=== PATIENT | female | born 1985 | race African-American/Black ===

== ENCOUNTER 2016-09-20 03:33 | Emergency (ER) | payer OTHER ==
[2016-09-20 04:21] VITALS: BP 139/81; PULSE 66; TEMP 98.2; BMI 25.1
[2016-09-20] MEDS ORDERED: CYCLOBENZAPRINE HCL 10 MG TABLET (FP) PO ONE (04:39)
[2016-09-20] MEDS ORDERED: KETOROLAC TROMETHAMINE 30 MG/1 ML VIAL IM ONE (04:39)
--- NOTE | 2016-09-20 04:39 | PDOC ---
History of Present Illness <Grant Chou - Last Filed: 09/20/16 04:35> - General History Source: Patient, Old Records Exam Limitations: No Limitations - History of Present Illness Initial Comments: 09/20/16 04:40 The patient is a 31 year old female with past medical history of anemia and hypercholesterolemia who presents to the ED with right shoulder pain for 2 months that has worsened over the past 2 days. The patient reports herniated discs in her neck and back. The patient describes the pain as burning and worse in the front. The patient reports associated nausea. The patient states that she has taken arthritis medication with no alleviation of symptoms <Gary Jordan - Last Filed: 09/20/16 04:42> - General Chief Complaint: Pain, Acute Stated Complaint: SHOULDER PAIN Time Seen by Provider: 09/20/16 04:27 Past History - Past Medical History Asthma: Yes Diabetes: Yes Suicide Attempt (Hx): No - Surgical History Abdominal Surgery: Yes (gastric bypass 2010) Appendectomy: Yes (gastric bypass last year) - Reproductive History (#): 9 Therapeutic (s) & number: Yes Spontaneous : 8 - Immunization History Immunization Up to Date: No - Psycho/Social/Smoking Cessation Hx Anxiety: No Suicidal Ideation: No Smoking Status: No Smoking History: Never smoked Have you smoked in the past 12 months: No Number of Cigarettes Smoked Daily: 0 Cigars Per Day: 0 Information on smoking cessation initiated: No Hx Alcohol Use: No Drug/Substance Use Hx: No Substance Use Type: Prescribed <Grant Chou - Last Filed: 09/20/16 04:35> <Gary Jordan - Last Filed: 09/20/16 04:42> - Past Medical History Allergies/Adverse Reactions: Allergies Allergy/AdvReac Type Severity Reaction Status Date / Time doxycycline Allergy Itching Verified 09/20/16 04:20 Home Medications: Ambulatory Orders Albuterol Sulfate Inhaler - [Ventolin Hfa Inhaler -] 1 - 2 inh PO QID 04/10/16 Dextroamphetamine/Amphetamine [Adderall 10 mg Tablet] 1 tab PO TID 04/10/16 Enoxaparin [Lovenox -] 40 mg SQ DAILY 04/10/16 Levothyroxine [Synthroid -] 1 tab PO WEEKLY 08/28/16 Levothyroxine [Synthroid -] 50 mcg PO DAILY 04/10/16 Zolpidem Tartrate [Ambien] 10 mg PO HS 04/10/16 Cyclobenzaprine HCl [Flexeril -] 10 mg PO TID #20 tablet MDD 3 TABS 09/20/16 Diclofenac Sodium/Misoprostol [Arthrotec 75 mg-200 Mcg Tab] 1 each PO BID #20 tablet. 09/20/16 Review of Systems - Review of Systems Able to Perform ROS?: Yes ABD/GI: Yes: Symptoms Reported, See HPI, Nausea Musculoskeletal: Yes: Symptoms Reported, See HPI, Joint Pain, Muscle Pain, Other <Gary Jordan - Last Filed: 09/20/16 04:42> *Physical Exam - Vital Signs Last Vital Signs Temp Pulse Resp BP Pulse Ox 98.2 F 66 20 139/81 98 09/20/16 04:20 09/20/16 04:20 09/20/16 04:20 09/20/16 04:20 09/20/16 04:20 - Physical Exam General Appearance: Yes: Nourished, Appropriately Dressed. No: Apparent Distress HEENT: positive: Normal ENT Inspection Neck: positive: Supple, Other (TENDER TRAPZ RT SIDED W/ TRIGGER POINT). negative: Tender Respiratory/Chest: positive: Lungs Clear, Normal Breath Sounds. negative: Chest Tender, Respiratory Distress Cardiovascular: positive: Regular Rhythm, Regular Rate Musculoskeletal: positive: Normal Inspection. negative: Vertebral Tenderness Extremity: positive: Normal Capillary Refill, Normal Inspection. negative: Normal Range of Motion (LTD ROM RT ARM 2/2 PAIN) Integumentary: positive: Normal Color Neurologic: positive: Fully Oriented, Alert, Normal Mood/Affect, Normal Response , Motor Strength 5/5. negative: Sensory Deficit <Grant Chou - Last Filed: 09/20/16 04:35> - Vital Signs Last Vital Signs Temp Pulse Resp BP Pulse Ox 98.2 F 66 20 139/81 98 09/20/16 04:20 09/20/16 04:20 09/20/16 04:20 09/20/16 04:20 09/20/16 04:20 <Gary Jordan - Last Filed: 09/20/16 04:42> *DC/Admit/Observation/Transfer <Grant Chou - Last Filed: 09/20/16 04:35> - Attestations Scribe Attestion: 09/20/16 04:40 Documentation prepared by Gary Jordan, acting as certified medical technician for Grant Chou MD. <Gary Jordan - Last Filed: 09/20/16 04:42> Diagnosis at time of Disposition: Cervical radiculopathy - Discharge Dispostion Disposition: HOME Condition at time of disposition: Stable - Prescriptions Prescriptions: Diclofenac Sodium/Misoprostol [Arthrotec 75 mg-200 Mcg Tab] 1 each PO BID #20 tablet. Cyclobenzaprine HCl [Flexeril -] 10 mg PO TID #20 tablet MDD 3 TABS - Referrals Referrals: Jose Hope [Primary Care Provider] - Call tomorrow - Patient Instructions Additional Instructions: TAKE MEDICATIONS PRESCRIBED AVOID PROLONG PERIODS OF TIME IN SAME POSITION DO NOT LIFT WEIGHTS ICE OR HEAT TO AREA (WHATEVER WORKS BETTER FOR YOU) CALL YOUR DOCTOR TO START PHYSICAL THERAPY JOSE PENDULAR AND "[id number] EXERCISES INSTRUCTED, FOLLOWED BY ICE 3 TIMES A DAY
[2016-09-20] MEDS ORDERED: CYCLOBENZAPRINE HCL 10 MG TABLET (FP) ONE (04:49)
[2016-09-20] MEDS ORDERED: KETOROLAC TROMETHAMINE 30 MG/1 ML VIAL ONE (04:49)
== END 2016-09-20 04:57 | disposition home or self-care (01) ==
LOC: JER 03:33
PROC: 3E0233Z Introduction of Anti-inflammatory into Muscle, Percutaneous Approach (ICD-10-PCS; principal; 2016-09-20)
DX: M25.511 Pain in right shoulder (principal); M54.12 Radiculopathy, cervical region; E11.9 Type 2 diabetes mellitus without complications; J45.909 Unspecified asthma, uncomplicated; E78.00 Pure hypercholesterolemia, unspecified; D64.9 Anemia, unspecified
CPT/HCPCS: 96372; 99281-25